=== PATIENT | female | born 1985 | race African-American/Black ===

== ENCOUNTER 2023-04-20 12:58 | Emergency (ER) | payer BC, MEDICAID, SELFPAY ==
[2023-04-20] VITALS (8 sets, daily range): BP systolic 138–151; BP diastolic 71–90; PULSE 75–86; RESP 18–24; TEMP 36.3–36.5; O2SAT 98–100
--- NOTE | ~2023-04-20 | XR_ITS ---
EXAMINATION: XR chest 2V DATE: 04/20/2023 13:24 INDICATION: Chest pain. Chest tightness. TECHNIQUE: Frontal and lateral views of the chest were obtained. COMPARISON: None. FINDINGS: There is no pneumonia, pleural effusion, or pneumothorax. Cardiomegaly is noted. IMPRESSION: 1. Cardiomegaly. Reviewed, dictated and finalized at location A. IMPRESSION: 1. Cardiomegaly.
--- NOTE | 2023-04-20 12:59 | ECG_ITS ---
Measurements Intervals [place] Rate: 85 P: 48 MS: 164 QRS: 57 QRSD: 88 T: 19 QT: 375 QTc: 448 Interpretive Statements SINUS RHYTHM NONSPECIFIC T-WAVE ABNORMALITY BORDERLINE ECG NO PREVIOUS ECG AVAILABLE FOR COMPARISON Electronically Signed On 04-20-2023 17:10:34 CDT by Beni Singh M.D.
[2023-04-20 13:45] LABS: Basophils Absolute Auto 0.1 K/mm3 (0.0-0.1); Basophils Percent Auto 0.6 % (0.2-1.2); Eosinophils Absolute Auto 0.3 K/mm3 (0-0.3); Eosinophils Percent Auto 3.3 % (0-4.4); Hematocrit 40.8 % (37.0-47.0); Hemoglobin 12.8 g/dL (12.0-15.0); Immature Granulocyte Absolute 0.02 K/mm3 (0.00-0.031); Immature Granulocyte Percent A 0.2 % (0-0.5); Lymphocytes Absolute Auto 2.86 K/mm3 (0.9-3.2); Lymphocytes Percent Auto 33.9 % (18.3-44.2); Mean Corpuscular HGB Conc 31.4 g/dl (32-36); Mean Corpuscular Hemoglobin 29.2 pg (26-34); Mean Corpuscular Volume 93.2 fl (80-100); Mean Platelet Volume 10.1 fl (7.4-10.4); Monocytes Absolute Auto 1.1 K/mm3 (0.1-0.6); Monocytes Percent Auto 12.5 % (2.6-8.5); Neutrophils Absolute Auto 4.2 K/mm3 (1.3-6.7); Neutrophils Percent Auto 49.5 % (45.5-73.1); Platelet Count Result 250 k/mm3 (150-375); Red Blood Count 4.38 M/mm3 (4.2-5.4); Red Cell Distribution Width 13.8 % (11.5-14.5); White Blood Count 8.4 K/mm3 (4.5-10.0)
[2023-04-20 13:55] LABS: Prothrombin Time 13.5 Seconds (11.1-14.7)
[2023-04-20 13:56] LABS: Partial Thromboplastin Time 30.4 SECONDS (22.3-36.8)
[2023-04-20 13:58] LABS: Alanine Aminotransferase 23 U/L (6-35); Albumin Level 4.1 g/dL (3.5-5.1); Alkaline Phosphatase 61 U/L (38-126); Anion Gap 4 mmol/L (8-16); Aspartate Amino Transferase 21 U/L (14-36); Bilirubin,Total 0.5 mg/dL (0.2-1.3); Blood Urea Nitrogen 14 mg/dL (7-17); Calcium 8.7 mg/dL (8.4-10.2); Carbon Dioxide 26 mmol/L (22-30); Chloride 103 mmol/L (98-107); Estimated CRCL calculation 115 ml/min; Estimated Glomerular Filt Rate > 60; Glucose 79 mg/dL (65-110); Lipase 78 U/L (23-300); Potassium 3.7 mmol/L (3.4-5.0); Sodium 133 mmol/L (137-145)
[2023-04-20 14:10] LABS: Troponin I < 0.012 ng/mL (0.000-0.034)
[2023-04-20 16:25] LABS: Troponin I < 0.012 ng/mL (0.000-0.034)
[2023-04-20] MEDS: Please add drug allergy info to patient profile. XX (18:08)
[2023-04-20] MEDS: ASPIRIN 81 MG CHEWABLE TABLET 324 MG PO (18:09)
--- NOTE | 2023-04-20 18:49 | ED.CHESTPAIN ---
HPI - Chest Pain General Chief Complaint: Chest Pain Stated Complaint: chest pain Time Seen by Provider: 04/20/23 18:26 History of Present Illness HPI narrative: Patient is a 37-year-old female with a history of hypertension presenting with chest pain. Patient states that she noticed left-sided chest pain that went into her left shoulder while eating lunch today. States that it was worse when taking a deep breath and with certain movements. Reports mild associated shortness of breath due to the pain with deep breaths. States that all of her symptoms have completely resolved. She is asking to go home. Denies any complaints currently. Related Data Allergies Allergy/AdvReac Type Severity Reaction Status Date / Time No Known Allergies Allergy Verified 04/20/23 18:03 Review of Systems Review of Systems: All systems reviewed & are unremarkable except as noted in HPI and below Exam Narrative: GENERAL: Well-appearing, well-nourished, and in no acute distress. Pleasant and cooperative HEAD: Normocephalic, atraumatic. EYES: PERRLA and EOMI. ENT: Nares clear, no rhinorrhea or epistaxis. Mucous membranes moist. NECK: Supple. CHEST: Clear to auscultation. No respiratory distress. HEART: Regular rate and rhythm. No murmur heard. Normal peripheral pulses. ABDOMEN: Soft, nontender, nondistended EXTREMITIES: Normal range of motion. No edema. SKIN: Warm, dry, no rash. NEURO: No focal deficits. Alert and oriented x3. PSYCH: Normal mood and affect. Course Vital Signs Vital signs: Vital Signs Temperature 97.7 F 04/20/23 13:14 Pulse Rate 83 04/20/23 13:14 Respiratory Rate 20 04/20/23 13:14 Blood Pressure 151/85 H 04/20/23 13:14 Pulse Oximetry 98 04/20/23 13:14 Oxygen Delivery Room Air 04/20/23 13:14 Temperature 97.4 F L 04/20/23 16:17 Pulse Rate 75 04/20/23 18:59 Respiratory Rate 20 04/20/23 18:59 Blood Pressure 138/74 04/20/23 18:59 Pulse Oximetry 100 04/20/23 18:59 Oxygen Delivery Room Air 04/20/23 13:14 MDM - Chest Pain MDM Narrative Medical decision making narrative: Patient is a 37-year-old female presenting with an episode of chest pain earlier today. Patient is hypertensive, otherwise vitals are within normal limits. Exam is unremarkable. EKG per my interpretation shows normal sinus rhythm, normal axis and intervals, nonspecific T wave changes, no ST elevations or depressions. Blood work is unremarkable. Troponins are undetectable x2. Chest x-ray without acute abnormalities. Patient denies any complaints at this time. She is asking to go home which I think is reasonable. Heart score is 2. Feel she is safe for outpatient follow-up with her PCP. She is agreeable with this plan. Appropriate return precautions given. Discharged in stable condition. Differential Diagnosis Differential diagnosis: Likely fracture of rib, pneumothorax, stable angina, atypical chest pain, costochondritis and chest pain Medical Records Data Attestation: I reviewed the patient's medical records. Lab Data Attestation: I reviewed the patient's lab results. 04/20/23 13:36 04/20/23 13:36 Labs: Lab Results 04/20/23 04/20/23 Range/Units 13:36 15:58 WBC 8.4 (4.5-10.0) K/mm3 RBC 4.38 (4.2-5.4) M/mm3 Hgb 12.8 (12.0-15.0) g/dL Hct 40.8 (37.0-47.0) % MCV 93.2 (80-100) fl MCH 29.2 (26-34) pg MCHC 31.4 L (32-36) g/dl RDW 13.8 (11.5-14.5) % Plt Count 250 (150-375) k/mm3 MPV 10.1 (7.4-10.4) fl Immature Gran % (Auto) 0.2 (0-0.5) % Neut % (Auto) 49.5 (45.5-73.1) % Lymph % (Auto) 33.9 (18.3-44.2) % Holmes % (Auto) 12.5 H (2.6-8.5) % Eos % (Auto) 3.3 (0-4.4) % Baso % (Auto) 0.6 (0.2-1.2) % Lymph # (Auto) 2.86 (0.9-3.2) K/mm3 Holmes # (Auto) 1.1 H (0.1-0.6) K/mm3 Eos # (Auto) 0.3 (0-0.3) K/mm3 Baso # (Auto) 0.1 (0.0-0.1) K/mm3 Abs Immat Gran (auto) 0.02 (0.00-0.031) K/mm3 Absolute Neuts (a
== END 2023-04-20 19:00 | disposition home or self-care (01) ==
PROVIDERS: Emergency Medicine; Emergency Provider Emergency Medicine
DX: R07.89 Other chest pain (principal); I10 Essential (primary) hypertension; I51.7 Cardiomegaly; R94.31 Abnormal electrocardiogram [ECG] [EKG]
CPT/HCPCS: 36415; 71046; 80053; 83690; 84484; 85025; 85610; 85730; 93005; 99284; A9270